=== PATIENT | female | born 1945 | race Caucasian/White ===

== ENCOUNTER → 2018-09-14 | Outpatient (CLI) | payer MEDICARE, OTHER ==
[2018-09-14 11:56] LABS: Basophils % (A) 1 %; Eosinophils # (A) 0.1 k/uL (0-0.7); Eosinophils % (A) 2 %; HCT 38.8 % (34.0-46.0); HGB 12.6 gm/dL (11.4-16.0); Lymphocytes # (A) 1.5 k/uL (1.0-4.8); Lymphocytes % (A) 22 %; MCH 28.9 pg (25.0-35.0); MCHC 32.4 g/dL (31.0-37.0); MCV 89.2 fL (80.0-100.0); Mean Platelet Volume 8.1; Monocytes # (A) 0.6 k/uL (0-1.0); Monocytes % (A) 9 %; Neutrophils # (A) 4.5 k/uL (1.3-7.7); Neutrophils % (A) 65 %; Platelet Count 221 k/uL (150-450); RBC 4.35 m/uL (3.80-5.40); RDW 13.5 % (11.5-15.5); WBC 6.9 k/uL (3.8-10.6)
[2018-09-14 16:05] LABS: Hemoglobin A1C 9.2 % (4.0-6.0)
[2018-09-14 16:56] LABS: African American GFR (CKD) 84.2 (60.0-200.0); Anion Gap 6.9 mmol/L (4.00-12.00); BUN/Creat Ratio 31.25 Ratio (12.00-20.00); Calcium 9.3 mg/dL (8.7-10.3); Carbon Dioxide 27.1 mmol/L (21.6-31.8); LDL Cholesterol,Calculated 160.8 mg/dL (0.0-131.0); Potassium 4.6 mmol/L (3.5-5.5); Total Bilirubin 0.4 mg/dL (0.2-1.2); VLDL Calculation 26.2 mg/dL (5.00-40.00)
== END | disposition home or self-care (01) ==
LOC: LABWHC1 10:52
PROVIDERS: ATTEND Family Medicine
DX: I10 Essential (primary) hypertension (principal); E11.9 Type 2 diabetes mellitus without complications; Z79.899 Other long term (current) drug therapy
CPT/HCPCS: 36415; 80053; 80061; 83036; 84443; 85025

== ENCOUNTER → 2018-10-26 | Outpatient (CLI) | payer MEDICARE, OTHER | END | disposition home or self-care (01) | LOC: LABWHC1 11:04 | PROVIDERS: ATTEND Family Medicine | DX: B89 Unspecified parasitic disease (principal) | CPT/HCPCS: 86850; 86900; 86901 ==

== ENCOUNTER → 2021-06-29 | Outpatient (CLI) | payer MEDICARE, OTHER ==
--- NOTE | 2021-06-29 16:53 | XR ---
EXAMINATION TYPE: XR chest 2V DATE OF EXAM: 06/29/2021 COMPARISON: NONE HISTORY: Cough for 2 weeks TECHNIQUE: FINDINGS: There is no heart failure nor confluent pneumonic infiltrate. There is limiting left costop hrenic angle. Heart is borderline enlarged. There are no hilar masses. Thoracic spine is intact. IMPRESSION: Borderline cardiomegaly. Mild pleural reaction lateral left lung base. No heart failure.
== END | disposition home or self-care (01) ==
LOC: RADXRMAIN 13:22
PROVIDERS: ATTEND Family Medicine
DX: R05.3 Chronic cough (principal)
CPT/HCPCS: 71046

== ENCOUNTER → 2022-05-24 | Outpatient (CLI) | payer MEDICARE, OTHER ==
--- NOTE | 2022-05-24 10:10 | CT ---
EXAMINATION TYPE: CT cervical spine wo con DATE OF EXAM: 05/24/2022 COMPARISON: None HISTORY: 76-year-old female M79.2 NEURALGIA AND NEURITIS, UNSPECIFIED, Right arm numbness. TECHNIQUE: CT of the cervical spine without IV contrast. Coronal and sagittal reconstructions perform ed. CT DLP: 425 mGycm Automated exposure control for dose reduction was used. FINDINGS: No craniocervical junction anomaly, predental space widening, or prevertebral soft tissue swelling. Moderate disc/endplate degenerative change particularly from C4 through T1 levels with disc space alex rowing, and discussed by complex formation. Additional posterior disc bulging C2-C3 and C3-C4 as well. Straightening of the normal cervical lordosis with preserved alignment. Uncovertebral joint arthropathy mid to lower lumbar spine. Scattered mild to moderate facet arthropat hy throughout. Changes result in very minimal mild spinal canal stenoses throughout, particularly C3-C4, C5-C6, and C6-C7. No obvious high grade canal compromise by CT. At C3-C4, changes result in [id number] left neuroforaminal stenosis. At C4-C5, changes result in moderate bilateral neuroforaminal stenosis. At C5-C6, changes resulting in [id number] right neuroforaminal stenosis. At C6/C7, changes result in geeu-kh-vvpomuvl right and mild left neuroforaminal stenosis. Questionable asymmetric medialization of the left vocal fold. Correlate for any voice changes and con biomathematician ENT evaluation. IMPRESSION: 1. MODERATE MULTILEVEL SPONDYLOTIC CHANGE, GREATEST FROM C4-T1 LEVELS. NO MALALIGNMENT OR ACUTE FRACT URE. 2. VARIABLE MULTILEVEL MILD SPINAL CANAL STENOSES SECONDARY TO EITHER DISC BULGING OR DISC OSTEOPHYTE COMPLEX FORMATION. NO HIGH-GRADE CANAL COMPROMISE IDENTIFIED BY CT. 3. VARIABLE MILD TO MODERATE BILATERAL NEUROFORAMINAL STENOSES OUTLINED ABOVE. 4. QUESTIONABLE ASYMMETRIC MEDIALIZATION OF THE LEFT VOCAL FOLD. THIS MAY BE ON A TRANSIENT BASIS. CO RRELATE FOR ANY VOICE CHANGES AND CONSIDER ENT EVALUATION.
== END | disposition home or self-care (01) ==
LOC: RADCTMAIN 07:24
PROVIDERS: ATTEND Family Medicine
DX: M47.812 Spondylosis without myelopathy or radiculopathy, cervical region (principal); M48.02 Spinal stenosis, cervical region; M50.21 Other cervical disc displacement, high cervical region; M79.2 Neuralgia and neuritis, unspecified
CPT/HCPCS: 72125

== ENCOUNTER → 2023-05-24 | Outpatient (CLI) | payer MEDICARE, OTHER ==
--- NOTE | 2023-05-24 17:13 | US ---
EXAMINATION TYPE: US carotid duplex BILAT DATE OF EXAM: 05/24/2023 COMPARISON: 01/13/2015 CLINICAL INDICATION: Female, 77 years old with history of I65.23 Bilateral carotid artery stenosis; TECHNIQUE: Carotid duplex ultrasound examination. Indirect Doppler criteria was utilized. FINDINGS: EXAM MEASUREMENTS: RIGHT: Peak Systolic Velocity (PSV) cm/sec ----- Right CCA: 59 ----- Right ICA: 98 ----- Right ECA: 149 ICA/CCA ratio: 1.7 RIGHT: End Diastole cm/sec ----- Right CCA: 13 ----- Right ICA: 19 ----- Right ECA: 16 LEFT: Peak Systolic Velocity (PSV) cm/sec ----- Left CCA: 81 ----- Left ICA: 90 ----- Left ECA: 99 ICA/CCA ratio: 1.1 LEFT: End Diastole cm/sec ----- Left CCA: 15 ----- Left ICA: 14 ----- Left ECA: 14 VERTEBRALS (direction of flow): Right Vertebral: Antegrade Left Vertebral: Antegrade Rhythm: Arrhythmia [employer] OFFICER NOTES: Calcified plaque and intimal thickening noted within bilateral CCA bulbs, no eleva mamta velocities seen. IMPRESSION: Less than 50% stenosis of the bilateral carotid bifurcations. Criteria for Assigning % of Stenosis / Diameter reduction (Estimation based on the indirect measurements of the internal carotid artery velocities (ICA PSV). 1. Normal (no stenosis)=ICA PSV < 125 cm/s: ratio < 2.0: ICA EDV<40 cm/s. 2. Less than 50% stenosis=ICA PSV < 125 cm/s: ratio < 2.0: ICA EDV<40 cm/s. 3. 50 to 69% stenosis=ICA PSV of 125 to 230 cm/s: ration 2.0 ? 4.0: ICA EDV 40-100 cm/s. 4. Greater than 70% stenosis to near occlusion= ICA PSV > 230 cm/s: ratio > 4.0: ICA EDV > 100 cm/s. 5. Near occlusion= ICA PSV velocities may be low or undetectable: variable ratio and ICA EDV. 6. Total occlusion=unable to detect flow.
--- NOTE | 2023-05-24 17:35 | CA ---
Transthoracic Echo Report Name: Maddi Rodrigez Age: 77 Gender: F : 1945 Exam Date: 05/24/2023 13:53 Exam Location: [facility] Ht (in): 66 Wt (lb): 169 Ordering Physician: Luann Dominguez MD Attending/Referring Phys: Luann Dominguez MD Skid Machine Operator Bella Earl RCS Procedure CPT: Indications: I42.9 CARDIOMYOPATHY I65.23 OCC AND STEN OF BI CAR Cardiac Hx: Technical Quality: Technically difficult study Contrast 1: Definity Total Dose (mL): 2 Contrast 2: Total Dose (mL): MEASUREMENTS (Male / Female) Normal Values 2D ECHO LV Diastolic Diameter PLAX 5.8 cm 4.2 - 5.9 / 3.9 - 5.3 cm LV Systolic Diameter PLAX 5.5 cm IVS Diastolic Thickness 1.1 cm 0.6 - 1.0 / 0.6 - 0.9 cm LVPW Diastolic Thickness 0.9 cm 0.6 - 1.0 / 0.6 - 0.9 cm LV Relative Wall Thickness 0.3 RV Internal Dim ED PLAX 2.8 cm LVOT Diameter 2.1 cm LV Diastolic Volume MOD BP 227.6 cm??? 67 - 155 / 56 - 104 cm??? LV Systolic Volume MOD BP 182.7 cm??? - / 19 - 49 cm??? LV Ejection Fraction MOD BP 19.7 % >= 55 % LV Cardiac Index MOD BP 1695.2 cm???/min???m??? LV Diastolic Volume MOD 4C 207.3 cm??? LV Systolic Volume MOD 4C 170.1 cm??? LV Ejection Fraction MOD 4C 17.9 % LV Cardiac Index MOD 4C 1403.6 cm???/min???m??? LV Diastolic Length 4C 8.9 cm LV Systolic Length 4C 8.2 cm LV Diastolic Volume MOD 2C 246.4 cm??? LV Systolic Volume MOD 2C 187.8 cm??? LV Ejection Fraction MOD 2C 23.8 % LV Cardiac Index MOD 2C 2213.4 cm???/min???m??? LV Diastolic Length 2C 9.5 cm LV Systolic Length 2C 8.8 cm LA Volume 99.6 cm??? 18 - 58 / 22 - 52 cm??? LA Volume Index 52.3 cm???/m??? 16 - 28 cm???/m??? Ascending Aorta Diameter 3.1 cm DOPPLER AV Peak Velocity 120.7 cm/s AV Peak Gradient 5.8 mmHg AV Mean Velocity 84.0 cm/s AV Mean Gradient 3.1 mmHg AV Velocity Time Integral 28.3 cm LVOT Peak Velocity 91.4 cm/s LVOT Peak Gradient 3.3 mmHg LVOT Velocity Time Integral 19.4 cm LVOT Stroke Volume 68.6 cm??? LVOT Stroke Volume Index 36.9 ml/m??? LVOT Cardiac Index 2593.1 cm???/min???m??? AV Area Cont Eq vti 2.4 cm??? AV Area Cont Eq pk 2.7 cm??? MV Peak Velocity 134.1 cm/s MV Peak Gradient 7.2 mmHg MV Mean Velocity 78.9 cm/s MV Mean Gradient 2.8 mmHg MV Velocity Time Integral 30.4 cm Mitral E Point Velocity 108.1 cm/s Mitral A Point Velocity 75.8 cm/s Mitral E to A Ratio 1.4 MV Deceleration Time 137.6 ms MV E' Velocity 2.7 cm/s Mitral E to MV E' Ratio 40.4 TR Peak Velocity 275.5 cm/s TR Peak Gradient 30.4 mmHg Right Ventricular Systolic Press 40.4 mmHg PV Peak Velocity 58.8 cm/s PV Peak Gradient 1.4 mmHg FINDINGS Left Ventricle Left ventricular ejection fraction is estimated at 15-20 %. Mildly increased septal wall thickness. Mildly increased left ventricular diastolic diameter. Severely increased left ventricular diastolic volume. Severely increased left ventricular systolic volume. Severely decreased left ventricular ejection fraction. Right Ventricle Normal right ventricular size with moderately reduced function. Right Atrium Moderate right atrial dilatation. Left Atrium Severely increased left atrial volume. Mitral Valve Mitral valve thickened. Mitral annular calcification. No evidence for mitral valve prolapse. Mild mitral stenosis. Mild mitral regurgitation. Aortic Valve Trileaflet aortic valve. Focal thickening of the aortic valve cusps. No aortic stenosis. No aortic regurgitation. Tricuspid Valve Structurally normal tricuspid valve. No tricuspid stenosis. Mild tricuspid regurgitation. Pulmonic Valve Pulmonic valve not well visualized. No pulmonic stenosis. No pulmonic regurgitation. Pericardium No pericardial effusion. Aorta Normal size aortic root and proximal ascending aorta. CONCLUSIONS Technically difficult study. Mildly increased LV cavity size. Mild concentric LVH. Left ventricular ejection fraction is estimated at 15-20 %. Severely reduced global LV systolic function Inferior and inferolateral wall hypokinesia. Atypical septal motion due to bundle-branch block. Grade II diastolic dysfunction Severe LA dilatation. Mildly elevated pressure. Moderate RA dilatation. Previewed by: Dr Maurice Oakes (Electronically Signed) Final Date: 24 May 2023 17:34
== END | disposition home or self-care (01) ==
LOC: RADECHMAIN 13:46
PROVIDERS: ATTEND Internal Medicine
DX: I65.23 Occlusion and stenosis of bilateral carotid arteries (principal); I51.7 Cardiomegaly; I45.4 Nonspecific intraventricular block; I42.9 Cardiomyopathy, unspecified
CPT/HCPCS: 93880; C8929; Q9957; 93306

== ENCOUNTER 2023-07-29 10:46 | Day surgery (SDC) | payer MEDICARE, OTHER ==
[2023-07-26 15:24] VITALS: BMI 27.4
[~2023-07-29 10:46] MED LIST: ALPRAZolam 0.25 MG TAB PO PRN; ALPRAZolam 0.5 MG TAB PO PRN; ASPIRIN 325 MG TAB PO ONE; ATORVASTATIN 80 MG TAB PO ONE; HEPARIN SODIUM,PORCINE (1 ML) 2,500 UNIT in SODIUM CHLORIDE 0.9% 250 ML IRRIGATION PRN; HEPARIN SODIUM,PORCINE 10,000 UNIT in SODIUM CHLORIDE 0.9% 1,000 ML IRRIGATION PRN; NITROGLYCERIN SL TABS 0.4 MG TAB SUBLINGUAL PRN; SODIUM CHLORIDE 0.9% 1,000 ML in EMPTY BAG 1 BAG IV SCH
[2023-07-29] MEDS: SODIUM CHLORIDE 0.9% 1,000 ML IV ONE (11:13)
[2023-07-29 11:31] LABS: Glucose,Whole Blood 228 mg/dL (70-110)
[2023-07-29 12:01] VITALS: RESP 16; TEMP 97.8
[2023-07-29] MEDS ORDERED: VERAPAMIL 2.5 MG/ML 2 ML AMP ONE (12:07)
[2023-07-29] MEDS ORDERED: fentaNYL (PF) 50 MCG/ML 2 ML AMP ONE (12:07)
[2023-07-29] MEDS ORDERED: LIDOCAINE 1% INJ 10MG/ML (20 ML MDV) ONE (12:08)
[2023-07-29] MEDS: fentaNYL (PF) 50 MCG/ML 2 ML AMP IVP ONE (12:20)
[2023-07-29] MEDS: fentaNYL (PF) 50 MCG/1 ML VIAL IVP ONE (12:20)
[2023-07-29] MEDS: MIDAZOLAM 2 MG/2 ML VIAL IVP ONE (12:20)
[2023-07-29] MEDS: LIDOCAINE 1% INJ 10MG/ML (20 ML MDV) SQ ONE (12:23)
[2023-07-29] MEDS ORDERED: HEPARIN SODIUM 1,000 UN/ML (10ML VL) ONE (12:24)
[2023-07-29] MEDS: HEPARIN SODIUM 1,000 UN/ML (10ML VL) IVP ONE (12:26)
[2023-07-29] MEDS: VERAPAMIL SYRINGE (5 MG/10 ML) INTRAARTER ONE (12:26)
[2023-07-29] MEDS: IOPAMIDOL-370 100ML BTL INJ ONE (12:32)
[2023-07-29 12:48] LABS: Glucose,Whole Blood 213 mg/dL (70-110)
[2023-07-29 15:06] LABS: Glucose,Whole Blood 108 mg/dL (70-110)
[2023-07-29 16:45] VITALS: BP 132/68; PULSE 61
--- NOTE | 2023-08-05 15:10 | P.CARDCATH ---
Description of Procedure: PROCEDURES PERFORMED: Left heart catheterization, bilateral coronary angiography, ultrasound guided arterial access INDICATION: Abnormal stress test CONSENT:I have discussed the risks, benefits and alternative therapies for the above-mentioned procedure and for both sedation/analgesia as well as necessary blood product administration, if indicated, as they pertain to this patient. The patient has indicated understanding and acceptance of the risks and procedures discussed. PROCEDURE: After the risks, benefits and alternatives of the above mentioned procedure explained in detail with the patient, informed consent was obtained. Patient was taken to the catheterization lab and prepped and draped in usual fashion. Ultrasound guidance was used to assess for arterial access. 1% lidocaine was used to anesthetize the right radial artery. A 6-Micronesian sheath was placed in the right radial artery using modified Seldinger technique and ultrasound guidance. Left coronary angiography was performed with a 5-Micronesian JL 3.5 catheter and right coronary angiography was performed with a 5-Micronesian FR5 catheter in various views. A 5-Micronesian FR5 catheter was inserted into the left ventricle and pressure measurements were obtained. The right radial sheath was removed and a TR band was placed with hemostasis achieved. The patient to lerated the procedure well. Patient was transported back to the post catheterization holding area in stable condition. Conscious Sedation: Patient was monitored under the direct supervision of myself for conscious sedation using Versed and fentanyl for a total duration of 7 minutes HEMODYNAMICS: Aorta: 133/85 LV: 128/10, LVEDP 22 SELECTIVE CORONARY ARTERIOGRAPHY: LEFT MAIN: The left main is a large caliber vessel which bifurcates into the LAD and circumflex. There is no significant stenosis. LEFT ANTERIOR DESCENDING CORONARY ARTERY: LAD is a large caliber vessel which wraps around to the apex. There are mild luminal irregularities of LAD with 10- 20% proximal mid LAD stenosis. Additionally diagonal 1 has a 20% proximal stenosis. LEFT CIRCUMFLEX CORONARY ARTERY: Left circumflex is a moderate caliber vessel without significant stenosis. RIGHT CORONARY ARTERY: The right coronary artery is a large caliber vessel which gives off a PDA and PLV branch and is the dominant vessel. There is no significant stenosis. FINAL IMPRESSION: 1. Mild CAD as described above including proximal to mid LAD 10-20% stenosis 2. Elevated left sided filling pressures PLAN: 1. Aggressive risk factor modification per most recent ACC/AHA guidelines. 2. Follow-up in the office in 1-2 weeks.
== END 2023-07-29 15:54 | disposition home or self-care (01) ==
LOC: CATHCVL 10:46
PROVIDERS: ATTEND Internal Medicine
DX: I25.10 Atherosclerotic heart disease of native coronary artery without angina pectoris (principal); E11.9 Type 2 diabetes mellitus without complications; E78.5 Hyperlipidemia, unspecified; I11.0 Hypertensive heart disease with heart failure; I50.9 Heart failure, unspecified; I25.5 Ischemic cardiomyopathy; Z79.02 Long term (current) use of antithrombotics/antiplatelets; Z79.899 Other long term (current) drug therapy; Z79.84 Long term (current) use of oral hypoglycemic drugs
CPT/HCPCS: 93458; 76937; 99152; C1769; C1894; J2250; J2001; J3010; J1644; Q9967

== ENCOUNTER → 2024-09-13 | Outpatient (CLI) | payer MEDICARE, OTHER ==
--- NOTE | 2024-09-13 09:51 | BD ---
EXAMINATION TYPE: Axial Bone Density DATE OF EXAM: 09/13/2024 CLINICAL HISTORY: 78 years old Female. ICD-10 CODE: M85.851 DISRD OF BONE DENSITY , Additional Histo ry: Height: 63.5 Weight: 151 FRAX RISK QUESTIONS: Secondary Osteoporosis: yes 1. Type 1 Diabetes: yes 3. Menopause before 45: no, at 52 RISK FACTORS HISTORY OF: osteoarthritis, diabetic,type 1, MEDICATIONS: bp meds, cholesterol, EXAM MEASUREMENTS: Bone mineral densitometry was performed using the [employer] System. Bone mineral density as measured about the Lumbar spine is: ----- L1-L4(G/cm2): 1.028 T Score Values are as follows: ----- L1: -1.5 ----- L2: -1.7 ----- L3: -0.9 ----- L4: -1.0 ----- L1-L4: -1.3 Z Score Values are as follows: ----- L1: 0.2 ----- L2: 0.0 ----- L3: 0.8 ----- L4: 0.7 ----- L1-L4: 0.5 Bone mineral density has: Increased1.4since study of: 06.15.2001 Bone mineral density about the R hip (g/cm2): 0.742 Bone mineral density about the L hip (g/cm2): 0.726 T Score values are as follows: -----R Neck: -2.0 -----L Neck: -2.0 -----R Total: -2.1 -----L Total: -2.2 Z Score values are as follows: -----R Neck: 0.1 -----L Neck: 0.1 -----R Total: -0.1 -----L Total: -0.3 Bone mineral density has: Decreased -18.6 since last study of 06.15.2021 FRAX%s: The graph provided illustrates a 16.0% chance for a major osteoporotic fx and a 4.8% chance f or the hips probability for fx in 10 years time. IMPRESSION: Osteopenia (T Score between -2.5 and -1). There is slightly increased risk of fracture and the patient may be considered for treatment. Re-Screen 2-5 years. NOTE: T-SCORE=SD OF THE YOUNG ADULT MEAN. [facility], , 09/13/2024 9:49 AM
--- NOTE | 2024-09-14 09:48 | MM ---
Reason for Exam: Screening (asymptomatic). Last mammogram was performed 1 year(s) and 7 month(s) ago. Patient History: Menarche at age 14. Patient has no children. Postmenopausal. 12/25/2008, Benign Core Biopsy on the left side. Risk Values: Jacquie 5 year model risk: 2.0%. NCI Lifetime model risk: 3.0%. Prior Study Comparison: 12/14/2022 Bilateral Screening Mammogram, [facility]. 02/09/2023 Left Diagnostic Mammogram, [facility]. Tissue Density: There are scattered areas of fibroglandular density. Findings: Analyzed By CAD. Benign-appearing small round and dystrophic calcifications bilaterally are redemonstrated. Vascular calcification bilaterally is again seen. Biopsy clip in the bilateral breasts are redemonstrated. Chronic nodularity left breast is stable or smaller in size. There is no suspicious new group of microcalcifications or new suspicious mass in either breast. Overall Assessment: Benign, BI-RAD 2 Management: Screening Mammogram of both breasts in 1 year. . Patient should continue monthly self-breast exams. A clinical breast exam by your physician is recommended on an annual basis. This exam should not preclude additional follow-up of suspicious palpable abnormalities. Note on Jacquie scores and lifetime risk: 1. A Jacquie score greater than 3% is considered moderate risk. If this is the case, consider specialist referral to assess eligibility for a risk reducing agent. 2. If overall lifetime risk for the development of breast cancer is 20% or higher, the patient may qualify for future screening with alternating mammogram and breast MRI. [facility], , 09/14/2024 9:45 AM. Electronically signed and approved by: Artis Rosario M.D.
== END | disposition home or self-care (01) ==
LOC: RADBDWWP 08:19
PROVIDERS: ATTEND Internal Medicine
DX: Z12.31 Encounter for screening mammogram for malignant neoplasm of breast (principal); R92.323 Mammographic fibroglandular density, bilateral breasts; M85.89 Other specified disorders of bone density and structure, multiple sites; Z78.0 Asymptomatic menopausal state
CPT/HCPCS: 77063; 77067; 77080